=== PATIENT | male | born 1950 | race Caucasian/White ===

== ENCOUNTER 2017-09-04 15:16 | Emergency (ER) | payer MEDICARE ==
[~2017-09-04] VITALS: Ht 177.8 cm; Wt 78.5 kg
[~2017-09-04 15:16] MED LIST: AMOXICILLIN500 MG PO; DAYPRO600 M1 PO; EES400 MG PO; VICODIN ES 7501 TAB PO
[2017-09-04] MEDS ORDERED: ZOVIRAX800 MG PO (15:30)
[2017-09-04] MEDS ORDERED: NEURONTIN300 MG PO (15:31)
== END 2017-09-04 15:36 | disposition home or self-care (01) ==
LOC: ED 15:16
DX: B02.9 Zoster without complications (principal); Z98.890 Other specified postprocedural states; Z88.1 Allergy status to other antibiotic agents; Z88.3 Allergy status to other anti-infective agents

== ENCOUNTER 2017-09-11 14:07 | Emergency (ER) | payer MEDICARE ==
[~2017-09-11 14:07] MED LIST changes: +NEURONTIN300 MG PO; +ZOVIRAX800 MG PO
[2017-09-11] MEDS ORDERED: NEURONTIN300 MG PO (14:25)
== END 2017-09-11 14:27 | disposition home or self-care (01) ==
LOC: ED 14:07
DX: B02.29 Other postherpetic nervous system involvement (principal); Z88.1 Allergy status to other antibiotic agents

== ENCOUNTER 2018-05-24 23:38 | Emergency (ER) | payer MEDICARE ==
[~2018-05-24] VITALS: Ht 177.8 cm; Wt 78.9 kg
[2018-05-25] MEDS ORDERED: FLOMAX0.4 MG PO (00:59)
== END 2018-05-25 01:02 | disposition home or self-care (01) ==
LOC: ED 23:38
DX: T83.038A Leakage of other urinary catheter, initial encounter (principal); Z88.1 Allergy status to other antibiotic agents; Z79.899 Other long term (current) drug therapy

== ENCOUNTER 2020-04-14 18:15 | Emergency (ER) | payer MEDICARE ==
[~2020-04-14] VITALS: Ht 172.7 cm; Wt 86.2 kg
[~2020-04-14 18:15] MED LIST changes: +FLOMAX0.4 MG PO
[2020-04-14 19:06] LABS: BASO % 0.1 % (0.0-1.0); HEMATOCRIT 43.7 % (42.0-52.0); LYMPH # 0.8 10*3/uL (1.3-4.4); LYMPH % 6.6 % (27.0-41.0); MEAN CELL VOLUME 90.5 fl (80.0-94.0); MEAN CORPUSCULAR HGB 31.7 pg (27.0-31.0); MEAN PLATELET VOLUME 9.3 fl (9.6-12.3); MONO # 0.5 10*3/uL (0.1-1.0); NEUT # 10.2 10*3/uL (2.3-7.9); PLATELET COUNT AUTOMATED 178 10*3/uL (130-400); RED BLOOD COUNT 4.83 10*6/uL (4.50-5.90); RED CELL DISTRI WIDTH 12.1 % (0-14.5); WHITE BLOOD COUNT 11.5 10*3/uL (4.8-10.8)
[2020-04-14 19:25] LABS: ALBUMIN 3.8 gm/dl (3.1-4.5); ALKALINE PHOSPHATASE 77 U/L (45-117); BUN 16 mg/dl (7-24); CHLORIDE 110 mmol/L (98-107); CREATININE 1.03 mg/dL (0.70-1.30); POTASSIUM 3.9 mmol/L (3.5-5.1); SGOT/AST 17 IU/L (3-35); SGPT/ALT 26 U/L (12-78); SODIUM 140 mmol/L (136-145); TOTAL PROTEIN 6.6 gm/dL (6.4-8.2)
[2020-04-14 19:27] LABS: ETHYL ALCOHOL < 3.0 mg/dl (<3)
[2020-04-14 19:29] LABS: TROPONIN I < 0.015 ng/ml (<0.045)
[2020-04-14 19:35] LABS: ACT PARTIAL THROMBO TIME 26.8 SECONDS (20.0-32.1); INTERNATIONAL NORM RATIO 1.1 (2.0-3.5)
[2020-04-14 19:45] LABS: BILIRUBIN Negative (Negative); BLOOD Negative (Negative); CLARITY Clear (Clear); COLOR Yellow (Yellow); GLUCOSE Negative (Negative); KETONE 3+ (Negative); LEUKO ESTERASE Negative (Negative); NITRITE Negative (Negative); PH 5.5 (4.5-8.0); SPECIFIC GRAVITY 1.025 (1.001-1.030); UROBILINOGEN 0.2 E.U./dl (0.0-1.0)
[2020-04-14 19:53] LABS: BACTERIA 1+; MUCOUS 3+; WBC 0-2 wbc/hpf (0-5)
[2020-04-14 19:54] LABS: URINE AMPHETAMINES < 1000 (1000ng/ml); URINE BARBITURATES < 200 (200ng/ml); URINE BENZODIAZEPINES < 200 (200ng/ml); URINE CANNABINOIDS (THC) > 50 (50ng/ml); URINE COCAINE > 300 (300ng/ml); URINE METHADONE < 300 (300ng/ml); URINE OPIATES < 300 (300ng/ml); URINE PHENCYCLIDINE < 25 (25ng/ml)
== END 2020-04-14 21:41 | disposition short-term general hospital (02) ==
LOC: ED 18:15
PROVIDERS: Emergency Medicine
DX: I63.9 Cerebral infarction, unspecified (principal); Z88.8 Allergy status to other drugs, medicaments and biological substances; Z79.899 Other long term (current) drug therapy

== ENCOUNTER → 2020-05-07 | Outpatient (CLI) | payer MEDICARE | END | disposition home or self-care (01) | LOC: COVID19 00:56 | PROVIDERS: ATTEND Physician Assistant | DX: Z20.828 Contact with and (suspected) exposure to other viral communicable diseases (principal); I63.9 Cerebral infarction, unspecified ==

== ENCOUNTER 2021-04-20 10:09 | Emergency (ER) | payer MEDICARE ==
[~2021-04-20] VITALS: Ht 177.8 cm; Wt 79.4 kg
[2021-04-20] MEDS ORDERED: POLYSPORIN OINT15 GM T (10:26)
== END 2021-04-20 14:02 | disposition home or self-care (01) ==
LOC: ED 10:09
DX: S81.831A Puncture wound without foreign body, right lower leg, initial encounter (principal); Z88.1 Allergy status to other antibiotic agents; Z88.8 Allergy status to other drugs, medicaments and biological substances; Z79.899 Other long term (current) drug therapy; Z96.612 Presence of left artificial shoulder joint; W22.8XXA Striking against or struck by other objects, initial encounter; Y93.01 Activity, walking, marching and hiking; Y92.89 Other specified places as the place of occurrence of the external cause; Y99.8 Other external cause status

== ENCOUNTER → 2022-01-06 | Outpatient (CLI) | payer MEDICARE ==
[~2022-01-06] MED LIST changes: +POLYSPORIN OINT15 GM T
== END | disposition home or self-care (01) ==
LOC: US 11:30
PROVIDERS: ATTEND Physician Assistant
DX: R22.42 Localized swelling, mass and lump, left lower limb (principal)

== ENCOUNTER 2022-06-09 21:35 | Emergency (ER) | payer MEDICARE ==
[~2022-06-09] VITALS: Ht 177.8 cm; Wt 90.7 kg
== END 2022-06-10 00:37 ==
LOC: ED 21:35
DX: I46.9 Cardiac arrest, cause unspecified (principal); Z88.1 Allergy status to other antibiotic agents; Z90.89 Acquired absence of other organs; Z98.890 Other specified postprocedural states